=== PATIENT | female | born 1990 | race Caucasian/White ===

== ENCOUNTER 2019-02-23 11:48 | Emergency (ER) | payer OTHER ==
[~2019-02-23] VITALS: Ht 162.6 cm; Wt 64.0 kg
[2019-02-23 14:40] VITALS: BP 134/78
== END 2019-02-23 14:43 | disposition home or self-care (01) ==
LOC: ED 13:41
DX: K29.00 Acute gastritis without bleeding (principal); Z90.89 Acquired absence of other organs
CPT/HCPCS: 36415; 80053; 81001; 83690; 84703; 85025; 93005; 99284